=== PATIENT | male | born 1945 | race Caucasian/White ===

== ENCOUNTER 2016-09-19 13:48 | Inpatient (IN) | payer OTHER ==
[~2016-09-19] VITALS: Ht 167.6 cm; Wt 98.2 kg
[2016-09-19] MEDS ORDERED: COUMADIN2 MG PO (15:00)
[2016-09-19] MEDS ORDERED: CYMBALTA60 MG PO (15:01)
[2016-09-19] MEDS ORDERED: MIRALAX17 GM/DOSE PO (15:05)
[2016-09-19] MEDS ORDERED: PROTONIX40 MG PO (15:06)
[2016-09-19] MEDS ORDERED: OMEPRAZOLE40 MG PO (15:06)
[2016-09-19] MEDS ORDERED: TRAZODONE150 MG PO (15:07)
[2016-09-19] MEDS ORDERED: COLACE100 MG PO (15:08)
[2016-09-19] MEDS ORDERED: IRON325 M2 PO (15:09)
[2016-09-19] MEDS ORDERED: NOVOLOG FLEX100 U/ML SC (15:11)
[2016-09-19] MEDS ORDERED: BISACODYL10 MG R (15:12)
[2016-09-19] MEDS ORDERED: ACETAMINOPHEN/O1 TA1 PO (15:15)
[2016-09-19] MEDS ORDERED: ACETAMINOPHEN325 M2 PO (15:16)
[2016-09-19 16:17] VITALS: BP 135/68
[2016-09-19 16:58] LABS: BASO # 0.1 10*3/uL (0.0-0.1); BASO % 0.7 % (0.0-1.0); EOS # 0.3 10*3/uL (0.0-0.4); EOS % 4.3 % (1.0-4.0); HEMOGLOBIN 11.3 g/dl (14.0-18.0); LYMPH # 1.5 10*3/uL (1.3-4.4); LYMPH % 22.3 % (27.0-41.0); MEAN CELL VOLUME 95.6 fl (80.0-94.0); MEAN CORPUSCULAR HGB 30.9 pg (27.0-31.0); MEAN CORPUSCULAR HGB CONC 32.3 g/dl (33.0-37.0); MEAN PLATELET VOLUME 9.9 fl (9.6-12.3); MONO # 0.4 10*3/uL (0.1-1.0); MONO % 5.9 % (3.0-9.0); NEUT # 4.5 10*3/uL (2.3-7.9); NEUT % 66.7 % (47.0-73.0); PLATELET COUNT AUTOMATED 195 10*3/uL (130-400); RED BLOOD COUNT 3.66 10*6/uL (4.50-5.90); WHITE BLOOD COUNT 6.8 10*3/uL (4.8-10.8)
[2016-09-19 21:07] VITALS: BP 138/53
[2016-09-20 07:12] LABS: ALBUMIN 3.1 gm/dl (3.1-4.5); ALKALINE PHOSPHATASE 133 U/L (45-117); BILIRUBIN, TOTAL 0.6 mg/dl (0.2-1.0); BUN 34 mg/dl (7-24); CARBON DIOXIDE 30 mmol/L (21-32); CHLORIDE 104 mmol/L (98-107); CHOLESTEROL 191 mg/dL (<200); EST GLOM FILT AFRICAN AMERICAN > 60 ml/min; GLUCOSE 122 mg/dL (65-99); HDL CHOLESTEROL 70 mg/dl (40-60); LDL CHOLESTEROL 99 mg/dL (9-159); POTASSIUM 4.4 mmol/L (3.5-5.1); SGOT/AST 20 IU/L (3-35); SGPT/ALT 19 U/L (12-78); SODIUM 141 mmol/L (136-145); TOTAL PROTEIN 7.5 gm/dL (6.4-8.2); TRIGLYCERIDES 108 mg/dl (<150); VLDL CHOLESTEROL 22 mg/dL (6-40)
[2016-09-20 07:48] VITALS: BP 133/57
[2016-09-20 08:15] LABS: HEMOGLOBIN A1c 6.5 % (4.8-5.6)
[2016-09-20 12:00] LABS: BILIRUBIN NEGATIVE (NEGATIVE); BLOOD TRACE-INTACT (NEGATIVE); CLARITY CLEAR (CLEAR); COLOR YELLOW (YELLOW); GLUCOSE NEGATIVE (NEGATIVE); KETONE NEGATIVE (NEGATIVE); LEUKO ESTERASE NEGATIVE (NEGATIVE); NITRITE NEGATIVE (NEGATIVE); PROTEIN TRACE (NEGATIVE); UROBILINOGEN 0.2 E.U./dl (0.2-1.0)
[2016-09-20 12:06] LABS: BACTERIA TRACE; URINE REFLEX COMMENT NO (NO)
[2016-09-20 20:33] VITALS: BP 130/62
[2016-09-21 07:44] VITALS: BP 134/62
[2016-09-21 20:00] VITALS: BP 109/78
[2016-09-22 07:29] LABS: BUN 38 mg/dl (7-24); CARBON DIOXIDE 30 mmol/L (21-32); CHLORIDE 101 mmol/L (98-107); EST GLOM FILT AFRICAN AMERICAN > 60 ml/min; GLUCOSE 174 mg/dL (65-99); POTASSIUM 4.2 mmol/L (3.5-5.1); SODIUM 142 mmol/L (136-145)
[2016-09-22 07:56] VITALS: BP 138/51
[2016-09-22 20:21] VITALS: BP 127/50
[2016-09-23 07:12] LABS: INTERNATIONAL NORM RATIO 1.2 (2.0-3.5); PROTHROMBIN TIME 12.7 SECONDS (9.0-12.4)
[2016-09-23 10:44] VITALS: BP 122/56
[2016-09-23 19:59] VITALS: BP 126/56
[2016-09-24 07:24] LABS: INTERNATIONAL NORM RATIO 1.2 (2.0-3.5); PROTHROMBIN TIME 12.3 SECONDS (9.0-12.4)
[2016-09-24 08:05] VITALS: BP 132/51
[2016-09-24] MEDS ORDERED: LORAZEPAM1 MG PO (08:26)
[2016-09-24] MEDS ORDERED: MIRTAZAPINE45 MG PO (08:26)
[2016-09-24] MEDS ORDERED: VITAMIN D50000 I3 PO (09:47)
[2016-09-24] MEDS ORDERED: COUMADIN3 M1 PO (10:28)
== END 2016-09-24 13:15 | disposition other institution (70) | DRG 885 ==
LOC: 3N 13:48
PROVIDERS: Hospitalist; Internal Medicine; Psychiatry & Neurology Psychiatry
DX: F33.2 Major depressive disorder, recurrent severe without psychotic features (principal); E11.22 Type 2 diabetes mellitus with diabetic chronic kidney disease; C64.9 Malignant neoplasm of unspecified kidney, except renal pelvis; J44.9 Chronic obstructive pulmonary disease, unspecified; I50.9 Heart failure, unspecified; Z87.891 Personal history of nicotine dependence; Z86.718 Personal history of other venous thrombosis and embolism; Z80.8 Family history of malignant neoplasm of other organs or systems; Z88.5 Allergy status to narcotic agent; Z88.0 Allergy status to penicillin; M19.91 Primary osteoarthritis, unspecified site; Z68.39 Body mass index [BMI] 39.0-39.9, adult; N18.3 Chronic kidney disease, stage 3 (moderate); E55.9 Vitamin D deficiency, unspecified; Z79.4 Long term (current) use of insulin; E11.65 Type 2 diabetes mellitus with hyperglycemia

== ENCOUNTER → 2017-06-19 | Emergency (ER) | payer MEDICARE ==
[~2017-06-19] VITALS: Ht 177.8 cm; Wt 95.3 kg
[~2017-06-19] MED LIST: ACETAMINOPHEN/O1 TA1 PO; ACETAMINOPHEN325 M2 PO; BISACODYL10 MG R; COLACE100 MG PO; COUMADIN2 MG PO; COUMADIN3 M1 PO; CYMBALTA60 MG PO; IRON325 M2 PO; LORAZEPAM1 MG PO; MIRALAX17 GM/DOSE PO; MIRTAZAPINE45 MG PO; NOVOLOG FLEX100 U/ML SC; OMEPRAZOLE40 MG PO; PROTONIX40 MG PO; TRAZODONE150 MG PO; VITAMIN D50000 I3 PO
[2017-06-19 19:19] LABS: BASO # 0.1 10*3/uL (0.0-0.1); BASO % 0.4 % (0.0-1.0); EOS # 0.2 10*3/uL (0.0-0.4); HEMATOCRIT 37.2 % (42.0-52.0); HEMOGLOBIN 12.3 g/dl (14.0-18.0); LYMPH # 0.9 10*3/uL (1.3-4.4); LYMPH % 7.8 % (27.0-41.0); MEAN CELL VOLUME 93.2 fl (80.0-94.0); MEAN CORPUSCULAR HGB 30.8 pg (27.0-31.0); MEAN CORPUSCULAR HGB CONC 33.1 g/dl (33.0-37.0); MEAN PLATELET VOLUME 9.7 fl (9.6-12.3); MONO # 0.8 10*3/uL (0.1-1.0); MONO % 6.9 % (3.0-9.0); NEUT # 9.3 10*3/uL (2.3-7.9); NEUT % 82.6 % (47.0-73.0); PLATELET COUNT AUTOMATED 177 10*3/uL (130-400); RED BLOOD COUNT 3.99 10*6/uL (4.50-5.90); RED CELL DISTRI WIDTH 12.6 % (0-14.5); WHITE BLOOD COUNT 11.2 10*3/uL (4.8-10.8)
[2017-06-19 19:31] LABS: INTERNATIONAL NORM RATIO 1.5 (2.0-3.5)
[2017-06-19 19:36] LABS: ALBUMIN 2.9 gm/dl (3.1-4.5); ALKALINE PHOSPHATASE 126 U/L (45-117); BUN 34 mg/dl (7-24); CHLORIDE 105 mmol/L (98-107); CREATININE 1.26 mg/dL (0.70-1.30); POTASSIUM 4.2 mmol/L (3.5-5.1); SGOT/AST 17 IU/L (3-35); SGPT/ALT 27 U/L (12-78); SODIUM 140 mmol/L (136-145); TOTAL PROTEIN 7.5 gm/dL (6.4-8.2)
== END ==
LOC: ED 17:29
PROVIDERS: Physician Assistant
DX: S72.091A Other fracture of head and neck of right femur, initial encounter for closed fracture (principal); Z79.899 Other long term (current) drug therapy; Z79.01 Long term (current) use of anticoagulants; Z79.4 Long term (current) use of insulin; Z87.891 Personal history of nicotine dependence; Z88.0 Allergy status to penicillin; W18.09XA Striking against other object with subsequent fall, initial encounter; Y93.89 Activity, other specified; Y92.89 Other specified places as the place of occurrence of the external cause; Y99.9 Unspecified external cause status